=== PATIENT | male | born 1950 | race Caucasian/White ===

== ENCOUNTER 2024-02-01 07:51 | Outpatient (REF) | payer MEDICARE, SELFPAY | END 2024-02-01 07:52 | disposition home or self-care (01) | LOC: HO.SH 07:51 | PROVIDERS: Visit Provider Physician Assistant Medical | DX: Z01.118 Encounter for examination of ears and hearing with other abnormal findings (principal); H90.3 Sensorineural hearing loss, bilateral | CPT/HCPCS: 92557; 92567 ==